=== PATIENT | female | born 1955 | race Caucasian/White ===

== ENCOUNTER 2021-02-01 14:00 | Inpatient (IN) | payer MEDICARE ==
[~2021-02-01] VITALS: Ht 167.6 cm; Wt 131.7 kg
[2021-02-01] MEDS ORDERED: LORazepam 2 MG/ML VIAL IV STA (14:22)
[2021-02-01 14:40] LABS: ABG BASE EXCESS -8.7 (-2.0-2.0); ABG HCO3 16.5 MEQ/L (22.0-26.0); ABG O2 SATURATION 97.4 % (95.0-99.0); ABG PARTIAL PRESSURE CO2 33.7 mmHg (35.0-45.0); ABG PARTIAL PRESSURE O2 105.2 mmHg (75.0-100.0); ABG STANDARD HCO3 17.6 MEQ/L (22.0-26.0); ABG TOTAL CO2 17.5 MEQ/L (23.0-31.0); ABG pH (ARTERIAL) 7.308 UNITS (7.350-7.450)
--- NOTE | 2021-02-01 14:55 | REP ---
INDICATION: SOB. COMPARISON: 01/10/2019 the latest prior a two view exam FINDINGS: The technique utilized in obtaining the radiograph has magnified the cardiac silhouette and accentuated the interstitial markings. The superior mediastinal structures are midline. The cardiac silhouette is unremarkable in size, shape, and position, however, mild cardiomegaly cannot be ruled out.. The diaphragmatic surfaces of the lungs are regular, and the costophrenic angles are clear. The pulmonary cox are clear. The imaged osseous structures are intact.. IMPRESSION: There is no acute cardiopulmonary disease. Mild cardiomegaly cannot be ruled out. <Electronically signed by Elijah Monsalve > 02/01/21 [id number]
[2021-02-01 15:06] LABS: BASO # 0.1 10^3/uL (0.0-0.2); BASO % 0.5 % (0.0-1.0); EOS # 0.2 10^3/uL (0.0-0.5); HEMATOCRIT 42.6 % (36.0-47.0); HEMOGLOBIN 14.2 g/dl (12.0-15.5); LYMPH # 3.1 10^3/uL (1.5-5.0); LYMPH % 18.6 % (24.0-44.0); MEAN CORPUSCULAR HEMOGLOBIN 28.8 pg (27.0-33.0); MEAN CORPUSCULAR HGB CONC 33.3 g/dl (32.0-36.5); MEAN CORPUSCULAR VOLUME 86.4 fl (80.0-96.0); MONO # 1.1 10^3/uL (0.0-0.8); MONO % 6.4 % (2.0-8.0); NEUTROPHILS # 12.4 10^3/uL (1.5-8.5); PLATELET COUNT, AUTOMATED 464 10^3/uL (150-450); RED BLOOD COUNT 4.93 10^6/uL (4.00-5.40); WHITE BLOOD COUNT 16.9 10^3/uL (4.0-10.0)
[2021-02-01 16:03] LABS: ETHYL ALCOHOL (ETHANOL) < 0.003 % (0.000-0.010); SALICYLATE LEVEL < 1.7 MG/DL (5.0-30.0)
[2021-02-01 16:04] LABS: ACETAMINOPHEN LEVEL < 2.0 UG/ML (10.0-30.0)
--- NOTE | 2021-02-01 16:27 | REP ---
INDICATION: AMS. COMPARISON: None. TECHNIQUE: Helical scanning is acquired. 5 mm axial images were reformatted. Coronal MPR images were generated. FINDINGS: Preliminary digital manager of school radiograph is unremarkable. The patient is edentulous. On bone window settings, the bony calvarium is intact. Visualized paranasal sinuses are clear. No intraorbital abnormality is seen. There is mild vascular calcification. Small vessel atherosclerotic changes are seen in the periventricular white matter of the frontal lobes. There is no evidence of intracranial hemorrhage or acute infarction. No mass, extra-axial fluid collection, or midline shift. IMPRESSION: Vascular calcification, mild small vessel changes. No acute intracranial abnormality. <Electronically signed by Seymour Keita > 02/01/21 [id number]
[2021-02-01 16:29] LABS: AMPHETAMINES LEVEL URINE NEGATIVE (NEGATIVE); BARBITURATES URINE NEGATIVE (NEGATIVE); BENZODIAZEPINES URINE POSITIVE (NEGATIVE); CANNABINOIDS URINE NEGATIVE (NEGATIVE); COCAINE METABOLITE URINE NEGATIVE (NEGATIVE); METHADONE URINE NEGATIVE (NEGATIVE); OPIATES URINE NEGATIVE (NEGATIVE); PHENCYCLIDINE URINE NEGATIVE (NEGATIVE)
[2021-02-01] MEDS ORDERED: INCR1INH INH (17:46)
[2021-02-01] MEDS ORDERED: BACL10TA2 PO (17:46)
[2021-02-01] MEDS ORDERED: ATOR40TA75 PO (17:46)
[2021-02-01] MEDS ORDERED: OXYC20TA40 PO (17:46)
[2021-02-01] MEDS ORDERED: IBUP80TA PO (17:46)
[2021-02-01] MEDS ORDERED: ADV500INH INH (17:46)
[2021-02-01] MEDS ORDERED: CARB20TAXR PO (17:46)
[2021-02-01] MEDS ORDERED: ROPI0.5T3 PO (17:46)
[2021-02-01] MEDS ORDERED: NYST1POW9 TOP (17:46)
[2021-02-01] MEDS ORDERED: NITR1CAP27 PO (17:46)
[2021-02-01] MEDS ORDERED: CARB200T98 PO (17:46)
[2021-02-01] MEDS ORDERED: CARI1TAB7 PO (17:46)
[2021-02-01] MEDS ORDERED: FLUTISP NARES (17:46)
[2021-02-01] MEDS ORDERED: ERGO500029 PO (17:46)
[2021-02-01] MEDS ORDERED: FURO40TA2 PO (17:46)
[2021-02-01] MEDS ORDERED: ALBU8.5H INH (17:46)
[2021-02-01] MEDS ORDERED: DIPH25TA4 PO (17:46)
[2021-02-01] MEDS ORDERED: AMIT50TA PO (17:46)
[2021-02-01] MEDS ORDERED: LEVE750T5 PO (17:46)
[2021-02-01] MEDS ORDERED: METH-1022 PO ×2 (17:46)
[2021-02-01] MEDS ORDERED: OXYC-517 PO (17:46)
[2021-02-01] MEDS ORDERED: ALPR0.25 PO (17:46)
[2021-02-01] MEDS ORDERED: DOCU100C16 PO (17:46)
[2021-02-01] MEDS ORDERED: MED REC COMMENT (17:47)
[2021-02-01] MEDS ORDERED: SODIUM CHLORIDE 0.9% 1000ML IV STA (18:18)
[2021-02-01] MEDS ORDERED: LORazepam 2 MG/ML VIAL IV PRN (18:20)
[2021-02-01] MEDS ORDERED: VANCOMYCIN HCL 0 MG in IV FLUID PLACE HOLDER 1 EA IV SCH (18:30)
[2021-02-01] MEDS ORDERED: HOME MED LIST COMPLETE! XX SCH (18:45)
--- NOTE | 2021-02-01 18:50 | HPEPDOC ---
[facility] Medical History & Physical Date of Admission Feb 01, 2021 Date of Service: Feb 01, 2021 History and Physical CHIEF COMPLAINT: Unable to provide due to her mental status HISTORY OF PRESENT ILLNESS: 65-year-old female with a past medical history of COPD, bronchiectasis, seizure disorder, narcolepsy, common variable immunodeficiency, chronic pain syndrome, diabetes mellitus, TIA, sleep apnea, degenerative disc disease, and psoairsis was brought to the emergency room department by EMS. Unfortunately, due to the patient's mental status she is unable to contribute to HPI. As per ED signout, patient was dropped off without much information given. Initially she was swinging in bed and subsequently her mental status changed to staring into space but when her name was called she would track and respond with one-word. Otherwise, she reportedly would not engage in conversation. When she was seen in the emergency room department she was staring into space and her extremities were rolling. When her name was called these movements were to stop and she will track this provider in the room but would not engage in any conversation. She did not follow any commands. In the emergency room department she had a fever of 100.5, leukocytosis, and lactic acid of 2.24. She got a CT scan of the brain that showed no acute intracranial abnormalities. She did receive 0.5 mg of Ativan due to her initial agitation. PAST MEDICAL HISTORY: Past medical history was obtained from the chart, as mentioned above. PAST SURGICAL HISTORY: Obtained from the chart 1. Cholecystectomy. 2. Multiple orthopedic surgeries. SOCIAL HISTORY: Limited due to the patient's mental status. Attempt to call next of kin listed on file but there was no answer. According to previous records she does not smoke, and denied alcohol and recreational drug use. FAMILY HISTORY: According to previous records it was positive for malignancy. ALLERGIES: Please see below. REVIEW OF SYSTEMS: Unable to obtain due to mental status HOME MEDICATIONS: Please see below. PHYSICAL EXAMINATION: VITAL SIGNS: Please see below General: Lying in bed, no acute distress Head/Neck/Throat: Trachea midline, mucous membranes moist Eyes: Sclera anicteric, no erythema or discharge appreciated bilaterally Thorax: Normal respiratory effort on room air, lungs clear to auscultation bilaterally. Cardiovascular: Normal rate, regular rhythm, normal S1, S2; Abdomen: Bowel sounds present, soft/nontender/nondistended Genitourinary: No CVA tenderness, no Elizondo in place Musculoskeletal: Moving all extremities, no edema Skin: Warm, dry Neurologic: Awake, only tracks in the room once her name is called. She has rolling tremors that resolved when her name is called. LABORATORY DATA: See below. IMAGING: CT Head without contrast FINDINGS: Preliminary digital press feeder broomcorn radiograph is unremarkable. The patient is edentulous. On bone window settings, the bony calvarium is intact. Visualized paranasal sinuses are clear. No intraorbital abnormality is seen. There is mild vascular calcification. Small vessel atherosclerotic changes are seen in the periventricular white matter of the frontal lobes. There is no evidence of intracranial hemorrhage or acute infarction. No mass, extra-axial fluid collection, or midline shift. IMPRESSION: Vascular calcification, mild small vessel changes. No acute intracranial abnormality. Chest, 1 view FINDINGS: The technique utilized in obtaining the radiograph has magnified the cardiac silhouette and accentuated the interstitial markings. The superior mediastinal structures are midline. The cardiac silhouette is unremarkable in size, shape, and position, however, mild cardiomegaly cannot be ruled out.. The diaphragmatic surfaces of the lungs are regular, and the costophrenic angles are clear. The pulmonary cox are clear. The imaged osseous structures are intact.. IMPRESSION: There is no acute cardiopulmonary disease. Mild cardiomegaly cannot be ruled out. MICROBIOLOGY: Please see below. ASSESSMENT/PLAN: #Encephalopathy - toxic and metabolic -Etiology of her change in mental status is unclear. Unable to get in touch with family members to obtain baseline mental status and exact course of events. -This may be due to polypharmacy, she is on several medications that would alter mentation including alprazolam, amitriptyline, carisoprodol, diphenhydramine, methylphenidate, oxycodone, and OxyContin. If she does begin to show signs of withdrawal we will manage symptomatically with Ativan as needed. vs -Infectious etiology. She was noted to be febrile, had leukocytosis, and elevated lactic acid. Blood cultures, and urine cultures were obtained. 30 cc/kg fluid resuscitation will be given. Start with broad-spectrum antibiotics and narrow based on cultures. vs -Postictal encephalopathy, will check Keppra and carbamazepine levels. Spoke to nephrology who recommended to start her on IV Keppra equivalent dose of her ambulatory setting, as well as Dilantin 200 mg twice daily IV. vs -CVA, a stat MRI has been ordered as per nephrology recommendations. #Sepsis -She meets SIRS criteria but source is unknown. Her UA and chest x-ray were unremarkable. We will check blood cultures. Begin broad-spectrum antibiotics. -Follow-up lactic acid in 4 hours #COPD/bronchiectasis -Blood gas is mixed - primary acidosis with possibly secondary respiratory acidosis and additional metabolic alkalosis. -Patient not to be a acute exacerbation. Reviewing previous records she was on 3 L home O2; DuoNebs for now. #Common variable immunodeficiency -In 11/2019 she was receiving medical therapy as outpatient every . Unclear whether or not this has been continued. #Chronic pain syndrome -Back pain, neck pain, cervical disectomy, lumbosacral spondylosis, post laminectomy syndrome -We will hold narcotics due to mental status #Hyperlipidemia -Continue statin therapy once mental status improves. #Seizures -Continue equivalent IV dose of Keppra and will start Dilantin b/c carbamazepine is not offered IV. #Anxiety -Holding alprazolam due to mental status. #RLS -Holding ropinirole due to mental status. #DVT ppx -heparin subq. Critical care time spent 75 minutes. Vital Signs Vital Signs Date Time Temp Pulse Resp B/P (MAP) Pulse Ox O2 Delivery O2 Flow Rate FiO2 02/01/21 16:15 99.1 91 24 148/90 (109) 99 Nasal Cannula 2.0 Laboratory Data Labs 24H Laboratory Tests 2 02/01/21 14:19: POC Glucose (Misc Panel) 101, POC Sodium (Misc Panel) 133L, POC Potassium (Misc Panel) 4.9, POC Chloride (Misc Panel) 97L, POC Total CO2 (Misc Panel) 24.0, POC Blood Urea Nitrogen (Misc Panel 6L, POC Ionized Calcium (Misc Panel) 4.7, POC Creatinine (Misc Panel) 0.6, POC Hematocrit (Misc Panel) 44.0 02/01/21 14:21: Immature Granulocyte % (Auto) 0.5, Neutrophils (%) (Auto) 73.0H, Lymphocytes (%) (Auto) 18.6L, Monocytes (%) (Auto) 6.4, Eosinophils (%) (Auto) 1.0, Basophils (%) (Auto) 0.5, Neutrophils # (Auto) 12.4H, Lymphocytes # (Auto) 3.1, Monocytes # (Auto) 1.1H, Eosinophils # (Auto) 0.2, Basophils # (Auto) 0.1, Nucleated Red Blood Cells % (auto) 0.0, Salicylates Level < 1.7L, Acetaminophen Level < 2.0L, Ethyl Alcohol Level < 0.003 02/01/21 14:22: Blood Gas Bicarbonate Standard 17.6L, Arterial Blood pH 7.308L, Arterial Blood Partial Pressure CO2 33.7L, Arterial Blood Partial Pressure O2 105.2H, Arterial Blood Total CO2 17.5L, Arterial Blood HCO3 16.5L, Arterial Blood Base Excess - 8.7L, Arterial Blood Oxygen Saturation 97.4 02/01/21 14:25: Bedside Glucose (Misc Panel) 150H 02/01/21 14:31: POC Troponin I (Misc) 0.00 02/01/21 15:33: Urine Color YELLOW, Urine Appearance CLEAR, Urine pH 6.0, Urine Specific [place] 1.013, Urine Protein 2+H, Urine Glucose (UA) NEGATIVE, Urine Ketones NEGATIVE, Urine Blood 2+H, Urine Nitrite NEGATIVE, Urine Bilirubin NEGATIVE, Urine Urobilinogen 0.2, Urine Leukocyte Esterase NEGATIVE, Urine WBC (Auto) 0, Urine RBC (Auto) 2, Urine Hyaline Casts (Auto) 0, Urine Bacteria (Auto) NEGATIVE, Urine Squamous Epithelial Cells 2, Urine Mucus (Auto) SMALL, Urine Sperm (Auto) , Urine Opiates Screen NEGATIVE, Urine Methadone Screen NEGATIVE, Urine Barbiturates Screen NEGATIVE, Urine Phencyclidine Screen NEGATIVE, Urine Amphetamines Screen NEGATIVE, Urine Benzodiazepines Screen POSITIVEH, Urine Cocaine Metabolite Screen NEGATIVE, Urine Cannabinoids Screen NEGATIVE 02/01/21 15:57: POC Lactate (Misc Panel) 2.24*H CBC/BMP Laboratory Tests 02/01/21 14:21 Microbiology Microbiology 02/01/21 Blood Culture, Received Pending 02/01/21 Respiratory Virus Panel (PCR) (GAYLE) - Final, Complete 02/01/21 Blood Culture, Received Pending Home Medications Scheduled Alprazolam (Alprazolam) 0.25 Mg Tablet, 0.25 MG PO TID Amitriptyline HCl (Amitriptyline HCl) 50 Mg Tablet, 50 MG PO DAILY Atorvastatin Calcium (Atorvastatin Calcium) 40 Mg Tablet, 40 MG PO DAILY Baclofen (Baclofen) 10 Mg Tablet, 10 MG PO QHS Carbamazepine (Carbamazepine ER) 200 Mg Tab.er.12h, 200 MG PO DAILY Carbamazepine (Carbamazepine ER) 200 Mg Tab.er.12h, 400 MG PO QHS Docusate Sodium (Docusate Sodium) 100 Mg Capsule, 200 MG PO DAILY Ergocalciferol (Vitamin D2) (Vitamin D2) 50,000 Units Cap, 50,000 UNITS PO ASDIRECTED EVERY 10 DAYS Fluticasone Propionate (Fluticasone Propionate) 16 Gm [place].susp, 2 SPRAYS NARES QHS Furosemide (Furosemide) 40 Mg Tablet, 40 MG PO DAILY Levetiracetam (Levetiracetam) 750 Mg Tablet, 750 MG PO BID Methylphenidate HCl (Methylphenidate HCl) 10 Mg Tablet, 10 MG PO QAM Methylphenidate HCl (Methylphenidate HCl) 10 Mg Tablet, 20 MG PO DAILY TAKES AT NOON Nitrofurantoin Macrocrystal (Nitrofurantoin) 50 Mg Capsule, 50 MG PO DAILY Oxycodone HCl (Oxycontin) 20 Mg Tab.er.12h, 20 MG PO Q12H Ropinirole HCl (Ropinirole HCl) 0.5 Mg Tablet, 0.5 MG PO BID Salmeterol/Fluticasone (Advair 500-50 Diskus) 1 Each Blst.w.dev, 1 PUFF INH Q12H Umeclidinium [place] (Incruse Ellipta) 62.5 Mcg Blst.w.dev, 1 PUFF INH DAILY Scheduled PRN Albuterol Sulfate (Albuterol Sulfate Hfa) 8.5 Gm Hfa.aer.ad, 2 PUFFS INH Q4H PRN for SHORTNESS OF BREATH Carisoprodol (Carisoprodol) 350 Mg Tablet, 350 MG PO TID PRN for PAIN LEVEL 1-4 Ibuprofen (Ibuprofen) 800 Mg Tablet, 800 MG PO Q8H PRN for PAIN LEVEL 1-4 Nystatin (Nystatin Powder) 15 Gm Powder, 1 APPLIC TOP BID PRN for RASH APPLIES TO GROIN, UNDER BREASTS Oxycodone HCl (Oxycodone HCl) 5 Mg Tablet, 5 MG PO Q8H PRN for PAIN LEVEL 8-10 diphenhydrAMINE HCl (diphenhydrAMINE HCl) 25 Mg Tablet, 25 MG PO Q4H PRN for ITCHING Miscellaneous Medications [Med Rec Comment] [facility] REC OBTAINED VIA EXTERNAL Allergies Coded Allergies: No Known Allergies (Unverified , 02/01/21) A-FIB/CHADSVASC A-FIB History Current/History of A-Fib/PAF?: No MILAGRO HOOKER M.D. Feb 01, 2021 18:30
[2021-02-01] MEDS ORDERED: DEXTROSE 50% 50 ML SYRINGE IV PRN (19:00)
[2021-02-01] MEDS ORDERED: GLUCAGON INJ 1MG VIAL SC PRN (19:00)
[2021-02-01] MEDS ORDERED: GLUCOSE 4GM CHEW TABLET PO PRN (19:00)
[2021-02-01] MEDS ORDERED: ISOVUE-370 76% 100ML VIAL As Ordered ONE (19:14)
[2021-02-01] MEDS: PIPERACILLIN/TAZOBACTAM SOD 3.375 GM in D5W MINI-BAG PLUS 50 ML IV SCH (20:00)
[2021-02-01 20:30] LABS: ALBUMIN 3.5 GM/DL (3.2-5.2); ALT/SGPT 27 U/L (12-78); BILIRUBIN,TOTAL 0.2 MG/DL (0.2-1.0); BLOOD UREA NITROGEN 7 MG/DL (7-18); CALCIUM LEVEL 9.3 MG/DL (8.8-10.2); CARBAMAZEPINE (TEGRETOL) LEVEL 7.9 UG/ML (4.0-10.0); CARBON DIOXIDE LEVEL 29 MEQ/L (21-32); CHLORIDE LEVEL 97 MEQ/L (98-107); CREATININE FOR GFR 0.68 MG/DL (0.55-1.30); GLOMERULAR FILTRATION RATE > 60.0 (>45); GLUCOSE, FASTING 115 MG/DL (70-100); MAGNESIUM LEVEL 2.1 MG/DL (1.8-2.4); PHOSPHORUS LEVEL 4.2 MG/DL (2.5-4.9); POTASSIUM SERUM 4.7 MEQ/L (3.5-5.1); SODIUM LEVEL 132 MEQ/L (136-145); TOTAL PROTEIN 7.6 GM/DL (6.4-8.2)
[2021-02-01 20:40] LABS: FREE T4 0.76 NG/DL (0.76-1.46); THYROID STIMULATING HORMONE 2.38 uIU/ML (0.358-3.740)
[2021-02-01 20:41] LABS: FOLATE 7.5 NG/ML (>5.4)
[2021-02-01 20:42] LABS: TROPONIN I < 0.02 NG/ML (< 0.10)
[2021-02-01] MEDS ORDERED: levETIRAcetam INJection 750 MG in D5W 100 ML IV SCH (21:00)
--- NOTE | 2021-02-01 21:03 | REPVR ---
PROCEDURE INFORMATION: Exam: CT Chest Without and With Contrast; Diagnostic Exam date and time: 02/01/2021 8:22 PM Age: 65 years old Clinical indication: Shortness of breath; Additional info: CT chest with and without TECHNIQUE: Imaging protocol: Diagnostic computed tomography of the chest without and with contrast. 3D rendering (Not supervised by radiologist): MIP and/or 3D reconstructed images were created by the technologist. Radiation optimization: All CT scans at this facility use at least one of these dose optimization techniques: automated exposure control; mA and/or kV adjustment per patient size (includes targeted exams where dose is matched to clinical indication); or iterative reconstruction. Contrast material: ISOVUE 370; Contrast volume: 100 ml; Contrast route: INTRAVENOUS (IV); COMPARISON: CR Chest, 1 view 02/01/2021 2:41 PM FINDINGS: Lungs: Slight interstitial coarsening with minimal scattered fibro-atelectatic change. Pleural spaces: Unremarkable. No pneumothorax. No pleural effusion. Heart: Unremarkable. No cardiomegaly. No pericardial effusion. Pulmonary arteries: The main pulmonary artery measures 23 mm. Aorta: The ascending thoracic aorta measures 30 mm. Lymph nodes: Unremarkable. No enlarged lymph nodes. Gallbladder and bile ducts: Status post cholecystectomy. Bones/joints: Degenerative changes of the shoulders with question of loose bodies or calcific densities along the biceps tendon on the right. Soft tissues: Unremarkable. Other findings: Motion artifact with image degradation. IMPRESSION: 1. Motion artifact with image degradation. 2. Slight interstitial coarsening with minimal scattered fibro-atelectatic change. 3. Degenerative changes of the shoulders with loose bodies along the biceps tendon sheath. 4. Otherwise negative CT chest. No focal infiltrates. Electronically signed by: Chris Cleaning On 02/01/2021 21:02:23 PM
[2021-02-01] MEDS: PHENYTOIN INJ 250 MG/5 ML VIAL (J1165) IV SCH (21:48)
[2021-02-01] MEDS ORDERED: VANCOMYCIN HCL 1,000 MG, VIAL MATE ADAPTER 1 EACH in NS 250 ML IV ONE ×2 (22:00→23:00)
[2021-02-01 22:17] VITALS: BP 139/101
[2021-02-01 22:19] VITALS: BP 156/103
--- NOTE | 2021-02-01 22:36 | REPVR ---
PROCEDURE INFORMATION: Exam: CT Abdomen With Contrast Exam date and time: 02/01/2021 8:22 PM Age: 65 years old Clinical indication: Condition or disease; Other: Sepsis unclear source TECHNIQUE: Imaging protocol: Computed tomography images of the abdomen with intravenous contrast. Radiation optimization: All CT scans at this facility use at least one of these dose optimization techniques: automated exposure control; mA and/or kV adjustment per patient size (includes targeted exams where dose is matched to clinical indication); or iterative reconstruction. Contrast material: ISOVUE 370; Contrast volume: 100 ml; Contrast route: INTRAVENOUS (IV); COMPARISON: CR Chest, 1 view 02/01/2021 2:41 PM FINDINGS: Lungs: Bibasilar interstitial coarsening with minimal fibro-atelectatic change. Liver: Normal. No mass. Gallbladder and bile ducts: Status post cholecystectomy. Pancreas: Pancreatic atrophy for age. Spleen: Normal. No splenomegaly. Adrenals: Normal. No mass. Kidneys and ureters: Lobular kidneys bilaterally. Stomach and bowel: Visualized stomach and bowel are unremarkable. No obstruction. No mucosal thickening. Intraperitoneal space: Unremarkable. No free air. No significant fluid collection. Lymph nodes: Unremarkable. No enlarged lymph nodes. Vasculature: Mild atherosclerotic calcification of the aorta. Bones/joints: Anterior wedge configuration of T8-T9 and T11 with decreased height of T10 which appear to be chronic Soft tissues: Unremarkable. IMPRESSION: 1. Status post cholecystectomy. 2. Pancreatic atrophy for age. 3. Otherwise negative CT abdomen. Electronically signed by: Chris Cleaning On 02/01/2021 22:36:28 PM
[2021-02-01] MEDS: NS 1,000 ML IV SCH ×2 (22:42→23:54)
[2021-02-01 23:01] VITALS: BP 144/85
[2021-02-02] VITALS (13 sets, daily range): BP systolic 132–186; BP diastolic 67–92
[2021-02-02] MEDS: HumaLOG INSULIN (NovoLOG) PER UNIT SC SCH ×5 (00:11→23:25)
[2021-02-02] MEDS: NS 1,000 ML IV SCH ×2 (01:11→02:20)
[2021-02-02] MEDS: PIPERACILLIN/TAZOBACTAM SOD 3.375 GM in D5W MINI-BAG PLUS 50 ML IV SCH ×4 (01:11→20:12)
[2021-02-02 05:15] LABS: HEMATOCRIT 35.7 % (36.0-47.0); MEAN CORPUSCULAR HGB CONC 33.3 g/dl (32.0-36.5); MEAN CORPUSCULAR VOLUME 86.9 fl (80.0-96.0); PLATELET COUNT, AUTOMATED 367 10^3/uL (150-450); RED BLOOD COUNT 4.11 10^6/uL (4.00-5.40); WHITE BLOOD COUNT 11.5 10^3/uL (4.0-10.0)
[2021-02-02 05:23] LABS: HEMOGLOBIN 11.9 g/dl (12.0-15.5)
[2021-02-02 05:39] LABS: BLOOD UREA NITROGEN 6 MG/DL (7-18); CARBON DIOXIDE LEVEL 25 MEQ/L (21-32); CHLORIDE LEVEL 108 MEQ/L (98-107); CREATININE FOR GFR 0.62 MG/DL (0.55-1.30); GLOMERULAR FILTRATION RATE > 60.0 (>45); GLUCOSE, FASTING 109 MG/DL (70-100); MAGNESIUM LEVEL 1.8 MG/DL (1.8-2.4); POTASSIUM SERUM 4.7 MEQ/L (3.5-5.1); SODIUM LEVEL 140 MEQ/L (136-145)
[2021-02-02] MEDS: VANCOMYCIN HCL 1,000 MG, VIAL MATE ADAPTER 1 EACH in NS 250 ML IV SCH ×3 (06:08→22:14)
[2021-02-02] MEDS: HEPARIN SOD (PORCINE) 5000UNITS/ML 1ML VIAL/SYRINGE SC SCH ×3 (06:09→21:47)
[2021-02-02] MEDS: PHENYTOIN INJ 250 MG/5 ML VIAL (J1165) IV SCH ×2 (08:48→20:25)
[2021-02-02] MEDS ORDERED: LORazepam 2 MG/ML VIAL IV ONE ×2 (10:00→10:45)
[2021-02-02] MEDS ORDERED: levETIRAcetam INJection 750 MG in D5W 100 ML IV SCH (10:00)
--- NOTE | 2021-02-02 11:11 | ECGEPIP ---
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
[2021-02-02] MEDS ORDERED: hydrALAZINE 20MG/ML 1ML VIAL (J0360 PER 20MG) IV PRN (11:20)
--- NOTE | 2021-02-02 11:20 | IPNPDOC ---
Subjective Date Seen The patient was seen on 02/02/21. Subjective Chief Complaint/HPI Patient was seen and examined at bedside this morning. She is more awake and alert than she was on the day of admission. She only answers questions in one- word, and these words include " yes", " no", " all right", and " me". She is unable to elaborate on her answers. She does follow commands now but if asked repeatedly. Unfortunately, the MRI was not completed last night despite it being ordered stat. She will be going down to day for it. Objective Physical Examination Other physical findings General: Lying in bed, no acute distress Head/Neck/Throat: Trachea midline, mucous membranes moist Eyes: Sclera anicteric, no erythema or discharge appreciated bilaterally Thorax: Normal respiratory effort on room air, lungs clear to auscultation bilaterally. Cardiovascular: Normal rate, regular rhythm, normal S1, S2; Abdomen: Bowel sounds present, soft/nontender/nondistended Genitourinary: Elizondo draining yellow urine Musculoskeletal: Moving all extremities, no edema Skin: Warm, dry Neurologic: Awake, alert, only answers questions in simple one-word answers. She follows commands of asked repeatedly to do something but minimally. Assessment /Plan Assessment #Encephalopathy - toxic and metabolic -Her mentation is improving. Etiology of her change in mental status is unclear. We will try to get in touch with her brother today again to obtain mo re history of exactly what happened. -This may be due to polypharmacy, she is on several medications that would alter mentation including alprazolam, amitriptyline, carisoprodol, diphenhydramine, m ethylphenidate, oxycodone, and OxyContin. If she does begin to show signs of withdrawal we will manage symptomatically with Ativan as needed. vs -Infectious etiology. She was noted to be febrile, had leukocytosis, and elevated lactic acid. Blood cultures, and urine cultures were obtained. 30 cc/ kg fluid resuscitation will be given. Start with broad-spectrum antibiotics and narrow based on cultures. vs -Postictal encephalopathy, will check Keppra and carbamazepine levels. Spoke to nephrology who recommended to start her on IV Keppra equivalent dose of her ambulatory setting, as well as Dilantin 200 mg twice daily IV. vs -CVA, a stat MRI has been ordered as per neurology recommendations #Sepsis -She meet SIRS criteria but source is unknown. Her UA and chest x-ray were unremarkable. We will check blood cultures. Continue with broad-spectrum antibiotics until cultures have resulted. Lactic acid has resolved. #COPD/bronchiectasis -Blood gas was mixed on admission- primary acidosis with possibly secondary respiratory acidosis and additional metabolic alkalosis. -Patient not in acute exacerbation. Reviewing previous records she was on 3 L home O2; DuoNebs for now. #Common variable immunodeficiency -In 11/2019 she was receiving medical therapy as outpatient every . Unclear whether or not this has been continued. #Chronic pain syndrome -Back pain, neck pain, cervical disectomy, lumbosacral spondylosis, post laminectomy syndrome -We will hold narcotics due to mental status #Hyperlipidemia -Continue statin therapy once mental status improves. #Seizures -Continue equivalent IV dose of Keppra and will start Dilantin b/c carbamazepine is not offered IV. #Anxiety -Holding alprazolam due to mental status. #RLS -Holding ropinirole due to mental status. #DVT ppx -heparin subq. Critical care time spent 45 minutes. Another attempt to call brother, who reportedly called the icu, but there was no answer. Plan/VTE VTE Prophylaxis Ordered?: Yes VS, I&O, 24H, Fishbone Vital Signs/I&O Vital Signs Date Time Temp Pulse Resp B/P (MAP) Pulse Ox O2 Delivery O2 Flow Rate FiO2 02/02/21 10:01 68 19 186/81 (116) 96 Room Air 02/02/21 08:07 99.3 02/01/21 22:19 3.0 I&O- Last 24 Hours up to 6 AM 02/02/21 06:00 Intake Total 4147.5 ml Output Total 1975 ml Balance 2172.5 ml Laboratory Data 24H LABS Laboratory Tests 2 02/01/21 14:19: POC Glucose (Misc Panel) 101, POC Sodium (Misc Panel) 133L, POC Potassium (Misc Panel) 4.9, POC Chloride (Misc Panel) 97L, POC Total CO2 (Misc Panel) 24.0, POC Blood Urea Nitrogen (Misc Panel 6L, POC Ionized Calcium (Misc Panel) 4.7, POC Creatinine (Misc Panel) 0.6, POC Hematocrit (Misc Panel) 44.0 02/01/21 14:21: Immature Granulocyte % (Auto) 0.5, Neutrophils (%) (Auto) 73.0H, Lymphocytes (%) (Auto) 18.6L, Monocytes (%) (Auto) 6.4, Eosinophils (%) (Auto) 1.0, Basophils (%) (Auto) 0.5, Neutrophils # (Auto) 12.4H, Lymphocytes # (Auto) 3.1, Monocytes # (Auto) 1.1H, Eosinophils # (Auto) 0.2, Basophils # (Auto) 0.1, Nucleated Red Blood Cells % (auto) 0.0, Salicylates Level < 1.7L, Acetaminophen Level < 2.0L, Ethyl Alcohol Level < 0.003 02/01/21 14:22: Blood Gas Bicarbonate Standard 17.6L, Arterial Blood pH 7.308L, Arterial Blood Partial Pressure CO2 33.7L, Arterial Blood Partial Pressure O2 105.2H, Arterial Blood Total CO2 17.5L, Arterial Blood HCO3 16.5L, Arterial Blood Base Excess - 8.7L, Arterial Blood Oxygen Saturation 97.4 02/01/21 14:25: Bedside Glucose (Misc Panel) 150H 02/01/21 14:31: POC Troponin I (Misc) 0.00 02/01/21 15:33: Urine Color YELLOW, Urine Appearance CLEAR, Urine pH 6.0, Urine Specific [place] 1.013, Urine Protein 2+H, Urine Glucose (UA) NEGATIVE, Urine Ketones NEGATIVE, Urine Blood 2+H, Urine Nitrite NEGATIVE, Urine Bilirubin NEGATIVE, Urine Urobilinogen 0.2, Urine Leukocyte Esterase NEGATIVE, Urine WBC (Auto) 0, Urine RBC (Auto) 2, Urine Hyaline Casts (Auto) 0, Urine Bacteria (Auto) NEGATIVE, Urine Squamous Epithelial Cells 2, Urine Mucus (Auto) SMALL, Urine Sperm (Auto) , Urine Opiates Screen NEGATIVE, Urine Methadone Screen NEGATIVE, Urine Barbiturates Screen NEGATIVE, Urine Phencyclidine Screen NEGATIVE, Urine Amphetamines Screen NEGATIVE, Urine Benzodiazepines Screen POSITIVEH, Urine Cocaine Metabolite Screen NEGATIVE, Urine Cannabinoids Screen NEGATIVE 02/01/21 15:57: POC Lactate (Misc Panel) 2.24*H 02/01/21 18:55: Anion Gap 6L, Glomerular Filtration Rate > 60.0, Calcium Level 9.3, Phosphorus Level 4.2, Magnesium Level 2.1, Total Bilirubin 0.2, Aspartate Amino Transf (AST/SGOT) 21, Alanine Aminotransferase (ALT/SGPT) 27, Alkaline Phosphatase 274H, Troponin I < 0.02, Total Protein 7.6, Albumin 3.5, Albumin/Globulin Ratio 0.9L, Carbamazepine (Tegretol) Level 7.9 02/01/21 19:41: Ammonia 29, Vitamin B12 Level 448, Folate 7.5, Thyroid Stimulating Hormone (TSH) 2.380, Free Thyroxine 0.76 02/01/21 21:02: Lactic Acid Followup at 4 Hours 1.6 02/02/21 00:02: Bedside Glucose (Misc Panel) 123H 02/02/21 00:53: Methicillin-Resist S.aureus DNA PCR DETECTEDA 02/02/21 04:42: Nucleated Red Blood Cells % (auto) 0.0, Anion Gap 7L, Glomerular Filtration Rate > 60.0, Calcium Level 8.0L, Phosphorus Level 3.0#, Magnesium Level 1.8 02/02/21 05:42: Bedside Glucose (Misc Panel) 122H CBC/BMP Laboratory Tests 02/01/21 14:21 02/01/21 18:55 02/02/21 04:42 Microbiology Microbiology 02/01/21 Blood Culture, Received Pending 02/01/21 Respiratory Virus Panel (PCR) (GAYLE) - Final, Complete 02/01/21 Blood Culture, Received Pending MILAGRO HOOKER M.D. Feb 02, 2021 11:20
[2021-02-02 11:46] LABS: TROPONIN I < 0.02 NG/ML (< 0.10)
--- NOTE | 2021-02-02 12:30 | REPVR ---
PROCEDURE INFORMATION: Exam: MR Head Without Contrast Exam date and time: 02/02/2021 11:54 AM Age: 65 years old Clinical indication: Altered mental status/memory loss; Confusion or disorientation; Additional info: Encephalopathy TECHNIQUE: Imaging protocol: MR of the head without contrast. COMPARISON: CT Head without contrast 02/01/2021 3:52 PM FINDINGS: Limitations: The study is limited due to motion artifact. Brain: There is mild patchy increased T2 signal intensity within the bilateral cerebral periventricular white matter, consistent with chronic microvascular ischemic changes. There are multiple small focal areas of chronic ischemia in bilateral frontal, parietal and periatrial white matter. There is no abnormal diffusion weighted signal intensity to suggest an acute ischemic event. There is mild diffuse cerebral atrophy present, consistent with this patient's age. Cerebral ventricles: The ventricular system demonstrates mild diffuse compensatory enlargement. Bones/joints: Unremarkable. Paranasal sinuses: Normal as visualized. No acute sinusitis. Mastoid air cells: Normal as visualized. No mastoid effusion. Orbital cavity: Unremarkable. Soft tissues: Unremarkable. IMPRESSION: 1. No acute infarction, masses or hemorrhage is seen. No acute intracranial abnormality is identified. 2. Diffuse age-related cerebral atrophy and mild chronic microvascular white matter ischemic changes, without evidence of an acute intracranial abnormality. 3. There has been no adverse interval change since the previous study. Electronically signed by: Radames Johnson On 02/02/2021 12:29:56 PM
--- NOTE | 2021-02-02 13:01 | REPVR ---
PROCEDURE INFORMATION: Exam: MRA Head Without Contrast; Arteriography Exam date and time: 02/02/2021 11:54 AM Age: 65 years old Clinical indication: Other: AMS; Additional info: [place]ibel CVA TECHNIQUE: Imaging protocol: Magnetic resonance angiography head without contrast. Exam focused on the arteries. 3D rendering (Not supervised by radiologist): MIP and/or 3D reconstructed images were created by the technologist. COMPARISON: CT Head without contrast 02/01/2021 3:52 PM FINDINGS: ANTERIOR CIRCULATION: Right internal carotid artery: Intracranial segment is patent with no significant stenosis. No aneurysm. Right middle cerebral artery: No occlusion or significant stenosis. No aneurysm. Right anterior cerebral artery: No occlusion or significant stenosis. No aneurysm. Left internal carotid artery: Intracranial segment is patent with no significant stenosis. No aneurysm. Left middle cerebral artery: No occlusion or significant stenosis. No aneurysm. Left anterior cerebral artery: No occlusion or significant stenosis. No aneurysm. POSTERIOR CIRCULATION: Right vertebral artery: No occlusion or significant stenosis. No aneurysm. Left vertebral artery: No occlusion or significant stenosis. No aneurysm. Basilar artery: No occlusion or significant stenosis. No aneurysm. Right posterior cerebral artery: No occlusion or significant stenosis. No aneurysm. Left posterior cerebral artery: No occlusion or significant stenosis. No aneurysm. IMPRESSION: No stenosis.No occlusion. No aneurysm. Electronically signed by: Radames Johnson On 02/02/2021 13:00:36 PM
[2021-02-02] MEDS: LIDOCAINE 5% (LIDODERM) PATCH TD SCH (21:00)
[2021-02-02] MEDS: levETIRAcetam INJection 1,000 MG in D5W 100 ML IV SCH (21:47)
[2021-02-02] MEDS ORDERED: KETOROLAC 30 MG/ML 1ML VIAL IV ONE (21:50)
[2021-02-03] VITALS (12 sets, daily range): BP systolic 95–180; BP diastolic 58–119
[2021-02-03] MEDS: PIPERACILLIN/TAZOBACTAM SOD 3.375 GM in D5W MINI-BAG PLUS 50 ML IV SCH ×4 (01:48→19:31)
--- NOTE | 2021-02-03 05:30 | ECGEPIP ---
[facility] - ED Test Date: 2021-02-01 Pat Name: JORDY COLLINS Department: Room: [place] [address] Gender: Female Timing Inspector: DANYELLE : 1955 Requested By: Braxton Redd Order Number: [id number] Reading MD: Braxton Muniz Measurements Intervals Ericson Rate: 105 P: 44 MS: 214 QRS: 86 QRSD: 74 T: 10 QT: 328 QTc: 433 Interpretive Statements Sinus tachycardia with 1st degree AV block Low voltage QRS POOR R WAVE PROGRESSION NO PRIORS FOR COMPARISON Electronically Signed on 02-03-2021 5:29:44 EDT by Braxton Muniz
[2021-02-03] MEDS: HumaLOG INSULIN (NovoLOG) PER UNIT SC SCH ×3 (05:48→17:23)
[2021-02-03] MEDS: levETIRAcetam INJection 1,000 MG in D5W 100 ML IV SCH (06:02)
[2021-02-03] MEDS: HEPARIN SOD (PORCINE) 5000UNITS/ML 1ML VIAL/SYRINGE SC SCH ×2 (06:02→14:12)
[2021-02-03] MEDS: VANCOMYCIN HCL 1,000 MG, VIAL MATE ADAPTER 1 EACH in NS 250 ML IV SCH ×2 (06:29→15:23)
[2021-02-03 08:14] LABS: ABG BASE EXCESS 0.5 (-2.0-2.0); ABG HCO3 24.1 MEQ/L (22.0-26.0); ABG O2 SATURATION 94.4 % (95.0-99.0); ABG PARTIAL PRESSURE CO2 35.1 mmHg (35.0-45.0); ABG PARTIAL PRESSURE O2 73.3 mmHg (75.0-100.0); ABG STANDARD HCO3 24.9 MEQ/L (22.0-26.0); ABG TOTAL CO2 25.1 MEQ/L (23.0-31.0); ABG pH (ARTERIAL) 7.454 UNITS (7.350-7.450)
[2021-02-03] MEDS ORDERED: IPRATROPIUM 0.5MG/ALBUTEROL 2.5MG INH SOL UD 3ML (DUONEB) NEB ONE (08:15)
[2021-02-03] MEDS ORDERED: methylPREDNISolone 125MG 2ML VIAL IV ONE (08:15)
--- NOTE | 2021-02-03 08:46 | REP ---
INDICATION: sob. COMPARISON: Comparison portable chest x-ray 01 February 2021. TECHNIQUE: Semi-erect AP portable exam. Single-view. FINDINGS: Ventral discectomy and fusion plating again noted in the cervical spine. EKG electrodes are seen. There is minimal pleuroparenchymal density in the left base which appears to be chronic. No new infiltrate is seen. The pleural angles are sharp. Cardiomediastinal silhouette is unremarkable. IMPRESSION: No acute disease. <Electronically signed by Seymour Keita > 02/03/21 [id number]
[2021-02-03] MEDS ORDERED: **NOTE PATIENT COMMENT** MISC XX SCH (09:00)
[2021-02-03] MEDS ORDERED: clonazePAM 0.5 MG TAB PO SCH (09:00)
[2021-02-03] MEDS: PHENYTOIN INJ 250 MG/5 ML VIAL (J1165) IV SCH ×2 (09:05→19:31)
[2021-02-03] MEDS: IPRATROPIUM 0.5MG/ALBUTEROL 2.5MG INH SOL UD 3ML (DUONEB) NEB SCH ×3 (11:13→19:22)
[2021-02-03] MEDS ORDERED: BACLOFEN 10 MG TAB NG ONE (11:15)
--- NOTE | 2021-02-03 11:26 | IPNPDOC ---
Subjective Date Seen The patient was seen on 02/03/21. Subjective Chief Complaint/HPI Patient was seen and examined at bedside this morning. She was transitioned from the ICU to PCU overnight. When she was seen at bedside this morning she was less responsive and holding onto the bed tightly. When her name was called she did not respond and was not following commands. It seemed as if she was belly breathing and respiratory distress. Therefore, she was unable to contribute to review of systems. Objective Physical Examination Other physical findings General: Lying in bed, no acute distress Head/Neck/Throat: Trachea midline, mucous membranes moist Eyes: Sclera anicteric, no erythema or discharge appreciated bilaterally Thorax: Saturating at 96% on room air, using accessory muscles, there is upper respiratory sounds appreciated Cardiovascular: Normal rate, regular rhythm, normal S1, S2; no S3, S4, rubs/gallops/murmurs Abdomen: Bowel sounds present, soft/nontender/nondistended Genitourinary: No CVA tenderness, no Elizondo in place Musculoskeletal: Difficult to assess as she is now following commands Skin: Warm, dry Neurologic: Awake, not alert, she is resisting passive testing of flexion and extension. Assessment /Plan Assessment #Encephalopathy - toxic and metabolic -Her mentation again this morning has deteriorated and she was following minimal commands. Etiology of her change in mental status is unclear. Several attempts to call her brother who reportedly called the ICU but there has been no answer. -This may be due to polypharmacy, she is on several medications that would alter mentation including alprazolam, amitriptyline, carisoprodol, diphenhydramine, methylphenidate, oxycodone, and OxyContin. If she does begin to show signs of withdrawal we will manage symptomatically with Ativan as needed. Spoke with the system support specialist today, who recommended an NG tube to reintroduce her baclofen as this can cause withdrawals. vs -Infectious etiology. She was noted to be febrile, had leukocytosis, and elevated lactic acid. Blood cultures, and urine cultures were obtained. 30 cc/kg fluid resuscitation was given. Her blood pressure remains stable. Continue with broad-spectrum antibiotics and narrow based on cultures. vs -Apparently, she had a seizure yesterday. It is possible postictal encephalopathy may be contributing to her mental status, Keppra level is pending, carbamazepine was within normal limits. Increased her Keppra dose to 1000 twice daily from 750 twice daily, continue with Dilantin as per neurology recommendations since there is no IV form of carbamazepine. vs -CVA has been ruled out by MRI. #Sepsis -She meet SIRS criteria but source is unknown. Her UA and chest x-ray were unremarkable. We will check blood cultures. Continue with broad-spectrum antibiotics until cultures have resulted. Lactic acid has resolved. #COPD/bronchiectasis -She seemed to be in respiratory distress today. She had upper respiratory sounds, and was bronchospastic. A stat ABG, prolonged DuoNeb treatment x1, and Solu-Medrol was given. Chest x-ray showed no acute changes. Her ABG showed no signs of CO2 retention. Beginning to suspect that she may have vocal cord dysfunction contributing to her current respiratory status. Pulmonology was consulted for further recommendations. -Reviewing previous records she was on 3 L home O2; DuoNebs for now. #Common variable immunodeficiency -In 11/2019 she was receiving medical therapy as outpatient every . Unclear whether or not this has been continued. #Chronic pain syndrome -Back pain, neck pain, cervical disectomy, lumbosacral spondylosis, post laminectomy syndrome -We will hold narcotics due to mental status #Hyperlipidemia -Continue statin therapy once mental status improves. #Seizures -Increased IV dose of Keppra and continue with Dilantin as carbamazepine is not offered IV. #Anxiety -alprazolam as needed, to prevent benzo withdrawals. #RLS -Holding ropinirole due to mental status. #DVT ppx -heparin subq. Update 1500 - Able to get a hold of the patient's brother, Lele. He reports prior to coming to the hospital patient had a change in mental status but waited a few hours to see if she would bounce back to her baseline. He believes her change may be related to her hx of seizures. Lele reports she has had episodes of what he thinks are seizures where she becomes unresponsive and at times "rocks back and forth" but come back herself. He does not think she has told anyone about these possible seizures she may be having despite being on antiepileptic medications. There has been no changes in in the dosages of her antiepileptics either. He was unable to state the number of pills in her pill box from the time of admission (to many vs to little), or indicate if she may have missed or taken to many of her medications. Lele is hopeful that she return back to her normal mental status. He was given all updates and discussed in length about the assessment/plan mentioned above. All questions were answered. Plan/VTE VTE Prophylaxis Ordered?: Yes VS, I&O, 24H, Fishbone Vital Signs/I&O Vital Signs Date Time Temp Pulse Resp B/P (MAP) Pulse Ox O2 Delivery O2 Flow Rate FiO2 02/03/21 08:00 97.5 78 41 121/76 (91) 97 Room Air 02/01/21 22:19 3.0 I&O- Last 24 Hours up to 6 AM 02/03/21 06:00 Intake Total 1175 ml Output Total 1890 ml Balance -715 ml Laboratory Data 24H LABS Laboratory Tests 2 02/02/21 12:08: Bedside Glucose (Misc Panel) 115 02/02/21 17:21: Bedside Glucose (Misc Panel) 98 02/02/21 20:52: Vancomycin Level Trough 13.8 02/02/21 23:24: Bedside Glucose (Misc Panel) 95 02/03/21 05:03: Bedside Glucose (Misc Panel) 100 02/03/21 08:05: Blood Gas Bicarbonate Standard 24.9, Arterial Blood pH 7.454H, Arterial Blood Partial Pressure CO2 35.1, Arterial Blood Partial Pressure O2 73.3L, Arterial Blood Total CO2 25.1, Arterial Blood HCO3 24.1, Arterial Blood Base Excess 0.5, Arterial Blood Oxygen Saturation 94.4L 02/03/21 10:33: Bedside Glucose (Misc Panel) 117H Microbiology Microbiology 02/01/21 Blood Culture - Preliminary, Resulted No growth after 24 hours . All specim... 02/01/21 Respiratory Virus Panel (PCR) ([facility]) - Final, Complete 02/01/21 Blood Culture - Preliminary, Resulted No growth after 24 hours . All specim... MILAGRO HOOKER M.D. Feb 03, 2021 11:26
--- NOTE | 2021-02-03 11:59 | REP ---
INDICATION: s/p NG tube placement. COMPARISON: Comparison radiograph February 03, 2021 8:32 a.m.. TECHNIQUE: Portable semi-erect AP radiograph time stamp 11:34 a.m.. FINDINGS: Nasogastric tube has been passed through the mediastinum and is seen terminating in the scratch a nasogastric tube is seen entering left upper quadrant. Cervical spine fusion plate hardware is again noted at the top of the imaging field of view. The lungs are symmetrically aerated and free of focal infiltrate. Pulmonary vasculature is not increased. Heart size is normal. IMPRESSION: NG tube enters the left upper quadrant. Otherwise no active disease. <Electronically signed by Seymour Keita > 02/03/21 0731
--- NOTE | 2021-02-03 12:31 | CR.PDOC ---
General Date of Consultation: Feb 03, 2021 Consultation REASON FOR CONSULTATION/CHIEF COMPLAINT: Altered mental status HISTORY OF PRESENT ILLNESS: History obtained from chart. 65-year-old female with a reported history of COPD, bronchiectasis, seizure disorder, narcolepsy, C VID, chronic pain, diabetes mellitus, TIA, sleep apnea. Patient was brought to the ED by EMS for change in mental status. On arrival to the ED she was hemodynamically stable however she was not able to have a conversation and she was a little bit combative. CT head in the ER was grossly unremarkable. She was admitted to [facility] for possible encephalopathy secondary to polypharmacy. ICU was called today because she was tachypneic, encephalopathic and concern for inability to protect airway. ALLERGIES: Please see below. HOME MEDICATIONS: Please see below. PAST MEDICAL HISTORY: As mentioned above PAST SURGICAL HISTORY: Cholecystectomy, multiple orthopedic surgeries SOCIAL HISTORY: Limited due to the patient's mental status. According to previous records she does not smoke, and denied alcohol and recreational drug use. FAMILY HISTORY: According to previous records it was positive for malignancy. REVIEW OF SYSTEMS: Unable to obtain at this time as patient is not able to answer questions due to confusion PHYSICAL EXAMINATION: VITAL SIGNS: Please see below. GENERAL APPEARANCE: Alert and awake. Arousable and appears to be protecting airway. Does not answer questions does not follow simple commands. HEENT: no thyromegaly, trachea midline, PERRLA. normal mucous membranes . RESPIRATORY: Expiratory wheeze heard bilaterally CARDIOVASCULAR: +s1 s2, no murmurs. ABDOMEN: nontender, not distended, +BS EXTREMITIES: no edema or erythema. palpable distal pulses SKIN: no rash, no purpura NEUROLOGICAL: Upper and lower extremities appear to have some rigidity, reflexes are normal, there is no obvious focal neurologic deficits LABORATORY DATA: Please see below. Labs and Imaging personally reviewed by me. IMPRESSION: The most critical problems requiring my immediate presence at bedside are: 1. Suspect toxic/metabolic encephalopathy secondary to baclofen withdrawal. Head imaging is all unremarkable. Doubt INFORMATION ASSURANCE ANALYST infection. 2. History of polypharmacy 3. Acute COPD exacerbation 4. 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 History of seizure disorder 6. History of anxiety PLAN: INFORMATION ASSURANCE ANALYST: Would start baclofen via NG tube. Continue with antiepileptics and check levels. PULM: HOB 30 degrees. Maintain Sp02 94-98%. Titrate off down as tolerated. Bronchodilators [id number] and as needed, Solu-Medrol 60 mg every 8 hours. She is protecting airway at this time, no need for intubation. CARDIO: Maintain MAPs 60-65. GI: Place NG tube, NPO for now RENAL: Follow-up electrolytes. ID: c/w with abx until cultures return ENDO: Monitor FS per routine. Goal range 140-180. HEME: dvt ppx LINES/CATHETERS: peripherals only DVT/GI PPX CODE STATUS: full code . DISPOSITION: icu monitoring A total of 51 minutes of critical care time was spent at bedside, not including procedures Vital Signs/I&O Vital Signs Date Time Temp Pulse Resp B/P (MAP) Pulse Ox O2 Delivery O2 Flow Rate FiO2 02/03/21 08:00 97.5 78 41 121/76 (91) 97 Room Air 02/01/21 22:19 3.0 I&O- Last 24 Hours up to 6 AM 02/03/21 06:00 Intake Total 1175 ml Output Total 1890 ml Balance -715 ml Laboratory Data Labs 24H Laboratory Tests 2 02/02/21 17:21: Bedside Glucose (Misc Panel) 98 02/02/21 20:52: Vancomycin Level Trough 13.8 02/02/21 23:24: Bedside Glucose (Misc Panel) 95 02/03/21 05:03: Bedside Glucose (Misc Panel) 100 02/03/21 08:05: Blood Gas Bicarbonate Standard 24.9, Arterial Blood pH 7.454H, Arterial Blood Partial Pressure CO2 35.1, Arterial Blood Partial Pressure O2 73.3L, Arterial Blood Total CO2 25.1, Arterial Blood HCO3 24.1, Arterial Blood Base Excess 0.5, Arterial Blood Oxygen Saturation 94.4L 02/03/21 10:33: Bedside Glucose (Misc Panel) 117H Microbiology Microbiology 02/01/21 Blood Culture - Preliminary, Resulted No growth after 24 hours . All specim... 02/01/21 Respiratory Virus Panel (PCR) ([facility]) - Final, Complete 02/01/21 Blood Culture - Preliminary, Resulted No growth after 24 hours . All specim... Allergies Coded Allergies: No Known Allergies (Unverified , 02/01/21) Home Medications Scheduled Alprazolam (Alprazolam) 0.25 Mg Tablet, 0.25 MG PO TID, (Reported) Amitriptyline HCl (Amitriptyline HCl) 50 Mg Tablet, 50 MG PO DAILY, (Reported) Atorvastatin Calcium (Atorvastatin Calcium) 40 Mg Tablet, 40 MG PO DAILY, (Reported) Baclofen (Baclofen) 10 Mg Tablet, 10 MG PO QHS, (Reported) Carbamazepine (Carbamazepine ER) 200 Mg Tab.er.12h, 200 MG PO DAILY, (Reported) Carbamazepine (Carbamazepine ER) 200 Mg Tab.er.12h, 400 MG PO QHS, (Reported) Docusate Sodium (Docusate Sodium) 100 Mg Capsule, 200 MG PO DAILY, (Reported) Ergocalciferol (Vitamin D2) (Vitamin D2) 50,000 Units Cap, 50,000 UNITS PO ASDIRECTED, (Reported) EVERY 10 DAYS Fluticasone Propionate (Fluticasone Propionate) 16 Gm [place].susp, 2 SPRAYS NARES QHS, (Reported) Furosemide (Furosemide) 40 Mg Tablet, 40 MG PO DAILY, (Reported) Levetiracetam (Levetiracetam) 750 Mg Tablet, 750 MG PO BID, (Reported) Methylphenidate HCl (Methylphenidate HCl) 10 Mg Tablet, 10 MG PO QAM, (Reported) Methylphenidate HCl (Methylphenidate HCl) 10 Mg Tablet, 20 MG PO DAILY, (Reported) TAKES AT NOON Nitrofurantoin Macrocrystal (Nitrofurantoin) 50 Mg Capsule, 50 MG PO DAILY, (Reported) Oxycodone HCl (Oxycontin) 20 Mg Tab.er.12h, 20 MG PO Q12H, (Reported) Ropinirole HCl (Ropinirole HCl) 0.5 Mg Tablet, 0.5 MG PO BID, (Reported) Salmeterol/Fluticasone (Advair 500-50 Diskus) 1 Each Blst.w.dev, 1 PUFF INH Q12 H, (Reported) Umeclidinium [place] (Incruse Ellipta) 62.5 Mcg Blst.w.dev, 1 PUFF INH DAILY, (Reported) Scheduled PRN Albuterol Sulfate (Albuterol Sulfate Hfa) 8.5 Gm Hfa.aer.ad, 2 PUFFS INH Q4H PRN for SHORTNESS OF BREATH, (Reported) Carisoprodol (Carisoprodol) 350 Mg Tablet, 350 MG PO TID PRN for PAIN LEVEL 1-4, (Reported) Ibuprofen (Ibuprofen) 800 Mg Tablet, 800 MG PO Q8H PRN for PAIN LEVEL 1-4, (Reported) Nystatin (Nystatin Powder) 15 Gm Powder, 1 APPLIC TOP BID PRN for RASH, (Reported) APPLIES TO GROIN, UNDER BREASTS Oxycodone HCl (Oxycodone HCl) 5 Mg Tablet, 5 MG PO Q8H PRN for PAIN LEVEL 8-10, (Reported) diphenhydrAMINE HCl (diphenhydrAMINE HCl) 25 Mg Tablet, 25 MG PO Q4H PRN for ITCHING, (Reported) Miscellaneous Medications [Med Rec Comment] , (Reported) [facility] REC OBTAINED VIA EXTERNAL CAMI KIRK MD Feb 03, 2021 12:31
[2021-02-03 15:05] LABS: ABG BASE EXCESS -0.4 (-2.0-2.0); ABG HCO3 22.2 MEQ/L (22.0-26.0); ABG O2 SATURATION 97.1 % (95.0-99.0); ABG PARTIAL PRESSURE CO2 30.7 mmHg (35.0-45.0); ABG PARTIAL PRESSURE O2 91.6 mmHg (75.0-100.0); ABG STANDARD HCO3 24.1 MEQ/L (22.0-26.0); ABG TOTAL CO2 23.1 MEQ/L (23.0-31.0); ABG pH (ARTERIAL) 7.477 UNITS (7.350-7.450)
[2021-02-03] MEDS ORDERED: MORPHINE 2 MG/ML 1ML VIAL (J2270) IV ONE (16:20)
[2021-02-03] MEDS ORDERED: oxyCODONE 20 MG CR TAB PO SCH (17:25)
[2021-02-03] MEDS ORDERED: LORazepam 2 MG/ML VIAL IM PRN (17:25)
[2021-02-03] MEDS ORDERED: LORazepam 2 MG/ML VIAL IV PRN (18:00)
[2021-02-03] MEDS ORDERED: levETIRAcetam INJection 1,500 MG in D5W 100 ML IV ONE (18:00)
[2021-02-03] MEDS ORDERED: levETIRAcetam INJection 1,500 MG in D5W 100 ML IV SCH (18:00)
[2021-02-03] MEDS ORDERED: oxyCODONE 5MG TAB NG PRN (18:10)
--- NOTE | 2021-02-03 19:33 | DS.PDOC ---
Discharge Summary General Date of Admission Feb 01, 2021 at 17:43 Date of Discharge 02/03/21 Discharge Summary ADMITTING DIAGNOSES: 1. Encephalopathy DISCHARGE DIAGNOSES: 1. Toxic/metabolic encephalopathy 2. Seizure 3. Sepsis 4. COPD 5. Chronic back pain COMPLICATIONS/CHIEF COMPLAINT: Encephalopathy. HOSPITAL COURSE: Ms. Dior, is a 65-year-old female with a past medical history of COPD, bronchiectasis, seizure disorder, narcolepsy, common variable immunodeficiency, chronic pain syndrome, diabetes mellitus, TIA, sleep apnea, degenerative disc disease, and psoairsis was brought to the emergency room department by EMS for a change in mental status. On the day of admission family was unreachable therefore history was limited. She was admitted for encephalopathy which was thought to be multifactorial including polypharmacy, infectious etiology, and postictal encephalopathy. She was noted to be febrile, have leukocytosis therefore was started on broad- spectrum antibiotics including vancomycin and Zosyn, for sepsis with an unknown source. CT scan of the chest, abdomen pelvis showed no acute pathology. Blood cultures on day 2 were negative thus far. Since she was n.p.o. status, she was started on her home dose of Keppra and IV phenytoin as her ambulatory p.o. carbamazepine would not be possible. At home, she was taking alprazolam, amitriptyline, carisoprodol, diphenhydramine, methylphenidate, oxycodone, and OxyContin. Therefore polypharmacy was also a suspicion She was protecting her airway therefore was not intubated. She was transferred to the ICU for neurological as well as airway monitoring. On the day 2 of admission, there is concerns that patient may have had another seizure that was witnessed by the nursing staff. Therefore her Keppra was titrated to 1000 mg twice daily from 750 mg twice daily. At this point, she was slightly confused but her mental status was still improved from the time of admission. Therefore she was downgraded from ICU to PCU. On day 3 of admission, she was altered again. The nursing staff and concerns that she may have had a seizure. Therefore neurology was contacted again and recommended an NG tube be placed and we reintroduce her carbamazepine, Keppra be increased to 1500 mg twice daily, and to continue with phenytoin. There was also concerns of her respiratory status therefore the ICU team was consulted. Initially was thought that her breathing was due to a COPD exac erbation. However, her ABG did not show any CO2 retention despite her work of breathing. She received 125 mg of Solu-Medrol as well as DuoNeb treatment and was transferred back to the ICU for close respiratory watch. The dental surgeon felt that she may also be withdrawing from baclofen, therefore baclofen was reintroduced. In the ICU she had further seizure-like activity, and now believed to be postictal causing her encephalopathy. There was concerns for continuous seizures. Unfortunately, there was no EEG available on the weekend and neurologist recommended that a continuous EEG would be most beneficial for her care. Therefore she is being transferred. At the time of discharge, patient remains encephalopathic. She was on Zosyn 3.375 gm every 6 hours, vancomycin 1000 mg every 8, Keppra 1000 mg every 12 (last dose received at on 02/03/21 at 1852), carbamazepine 200 mg every 8 (she was still to receive this dose), phenytoin 200 mg every 12 (last dose on 02/03 at 0905). Her alprazolam 0.25 milligrams 3 times daily, baclofen 10 mg was initiated on 02/03. Dr. Delaney of the neuro ICU at [place] accepted the patient. Patient's brother, Lele was notified about transfer and he was in agreement. Progress note from the day of transfer: #Encephalopathy - toxic and metabolic -Her mentation again this morning has deteriorated and she was following minimal commands. Etiology of her change in mental status is unclear. Several attempts to call her brother who reportedly called the ICU but there has been no answer. -This may be due to polypharmacy, she is on several medications that would alter mentation including alprazolam, amitriptyline, carisoprodol, diphenhydramine, methylphenidate, oxycodone, and OxyContin. If she does begin to show signs of withdrawal we will manage symptomatically with Ativan as needed. Spoke with the dental surgeon today, who recommended an NG tube to reintroduce her baclofen as this can cause withdrawals. vs -Infectious etiology. She was noted to be febrile, had leukocytosis, and elev ated lactic acid. Blood cultures, and urine cultures were obtained. 30 cc/kg fluid resuscitation was given. Her blood pressure remains stable. Continue with broad-spectrum antibiotics and narrow based on cultures. vs -Apparently, she had a seizure yesterday. It is possible postictal encephalopathy may be contributing to her mental status, Keppra level is pending, carbamazepine was within normal limits. Increased her Keppra dose to 1000 twice daily from 750 twice daily, continue with Dilantin as per neurology recommendations since there is no IV form of carbamazepine. vs -CVA has been ruled out by MRI. #Sepsis -She meet SIRS criteria but source is unknown. Her UA and chest x-ray were unremarkable. We will check blood cultures. Continue with broad-spectrum antibiotics until cultures have resulted. Lactic acid has resolved. #COPD/bronchiectasis -She seemed to be in respiratory distress today. She had upper respiratory sounds, and was bronchospastic. A stat ABG, prolonged DuoNeb treatment x1, and Solu-Medrol was given. Chest x-ray showed no acute changes. Her ABG showed no signs of CO2 retention. Beginning to suspect that she may have vocal cord dysfunction contributing to her current respiratory status. Pulmonology was consulted for further recommendations. -Reviewing previous records she was on 3 L home O2; DuoNebs for now. #Common variable immunodeficiency -In 11/2019 she was receiving medical therapy as outpatient every . Unclear whether or not this has been continued. #Chronic pain syndrome -Back pain, neck pain, cervical disectomy, lumbosacral spondylosis, post laminectomy syndrome -We will hold narcotics due to mental status #Hyperlipidemia -Continue statin therapy once mental status improves. #Seizures -Increased IV dose of Keppra and continue with Dilantin as carbamazepine is not offered IV. #Anxiety -alprazolam as needed, to prevent benzo withdrawals. #RLS -Holding ropinirole due to mental status. #DVT ppx -heparin subq. Update 1500 - Able to get a hold of the patient's brother, Lele. He reports prior to coming to the hospital patient had a change in mental status but waited a few hours to see if she would bounce back to her baseline. He believes her change may be related to her hx of seizures. Lele reports she has had episodes of what he thinks are seizures where she becomes unresponsive and at times "rocks back and forth" but come back herself. He does not think she has told anyone about these possible seizures she may be having despite being on antiepileptic medications. There has been no changes in in the dosages of her antiepileptics either. He was unable to state the number of pills in her pill box from the time of admission (to many vs to little), or indicate if she may have missed or taken to many of her medications. Lele is hopeful that she return back to her normal mental status. He was given all updates and discussed in length about the assessment/plan mentioned above. All questions were answered. DISCHARGE MEDICATIONS: Please see below. ALLERGIES: Please see below. PHYSICAL EXAMINATION ON DISCHARGE: VITAL SIGNS: Please see below. General: Lying in bed, no acute distress Head/Neck/Throat: Trachea midline, mucous membranes moist Eyes: Sclera anicteric, no erythema or discharge appreciated bilaterally Thorax: Saturating at 96% on room air, using accessory muscles, there is upper respiratory sounds appreciated Cardiovascular: Normal rate, regular rhythm, normal S1, S2; no S3, S4, rubs/gallops/murmurs Abdomen: Bowel sounds present, soft/nontender/nondistended Genitourinary: No CVA tenderness, no Elizondo in place Musculoskeletal: Difficult to assess as she is now following commands Skin: Warm, dry Neurologic: Staring into space, not following commands or answering questions LABORATORY DATA: Please see below. IMAGING: PORTABLE CHEST X-RAY FINDINGS: Nasogastric tube has been passed through the mediastinum and is seen terminating in the scratch a nasogastric tube is seen entering left upper quadrant. Cervical spine fusion plate hardware is again noted at the top of the imaging field of view. The lungs are symmetrically aerated and free of focal infiltrate. Pulmonary vasculature is not increased. Heart size is normal. IMPRESSION: NG tube enters the left upper quadrant. Otherwise no active disease. CT ABD & PELVIS WITH CONTRAST FINDINGS: Lungs: Bibasilar interstitial coarsening with minimal fibro-atelectatic change. Liver: Normal. No mass. Gallbladder and bile ducts: Status post cholecystectomy. Pancreas: Pancreatic atrophy for age. Spleen: Normal. No splenomegaly. Adrenals: Normal. No mass. Kidneys and ureters: Lobular kidneys bilaterally. Stomach and bowel: Visualized stomach and bowel are unremarkable. No obstruction. No mucosal thickening. Intraperitoneal space: Unremarkable. No free air. No significant fluid collection. Lymph nodes: Unremarkable. No enlarged lymph nodes. Vasculature: Mild atherosclerotic calcification of the aorta. Bones/joints: Anterior wedge configuration of T8-T9 and T11 with decreased height of T10 which appear to be chronic Soft tissues: Unremarkable. IMPRESSION: 1. Status post cholecystectomy. 2. Pancreatic atrophy for age. 3. Otherwise negative CT abdomen. CT CHEST W/O FOLL BY WITH CONT FINDINGS: Lungs: Slight interstitial coarsening with minimal scattered fibro-atelectatic change. Pleural spaces: Unremarkable. No pneumothorax. No pleural effusion. Heart: Unremarkable. No cardiomegaly. No pericardial effusion. Pulmonary arteries: The main pulmonary artery measures 23 mm. Aorta: The ascending thoracic aorta measures 30 mm. Lymph nodes: Unremarkable. No enlarged lymph nodes. Gallbladder and bile ducts: Status post cholecystectomy. Bones/joints: Degenerative changes of the shoulders with question of loose bodies or calcific densities along the biceps tendon on the right. Soft tissues: Unremarkable. Other findings: Motion artifact with image degradation. IMPRESSION: 1. Motion artifact with image degradation. 2. Slight interstitial coarsening with minimal scattered fibro-atelectatic change. 3. Degenerative changes of the shoulders with loose bodies along the biceps tendon sheath. 4. Otherwise negative CT chest. No focal infiltrates. MRA BRAIN W/O CONTRAST FINDINGS: ANTERIOR CIRCULATION: Right internal carotid artery: Intracranial segment is patent with no significant stenosis. No aneurysm. Right middle cerebral artery: No occlusion or significant stenosis. No aneurysm. Right anterior cerebral artery: No occlusion or significant stenosis. No aneurysm. Left internal carotid artery: Intracranial segment is patent with no significant stenosis. No aneurysm. Left middle cerebral artery: No occlusion or significant stenosis. No aneurysm. Left anterior cerebral artery: No occlusion or significant stenosis. No aneurysm. POSTERIOR CIRCULATION: Right vertebral artery: No occlusion or significant stenosis. No aneurysm. Left vertebral artery: No occlusion or significant stenosis. No aneurysm. Basilar artery: No occlusion or significant stenosis. No aneurysm. Right posterior cerebral artery: No occlusion or significant stenosis. No aneurysm. Left posterior cerebral artery: No occlusion or significant stenosis. No aneurysm. IMPRESSION: No stenosis.No occlusion. No aneurysm. MRI-Brain without Contrast FINDINGS: Limitations: The study is limited due to motion artifact. Brain: There is mild patchy increased T2 signal intensity within the bilateral cerebral periventricular white matter, consistent with chronic microvascular ischemic changes. There are multiple small focal areas of chronic ischemia in bilateral frontal, parietal and periatrial white matter. There is no abnormal diffusion weighted signal intensity to suggest an acute ischemic event. There is mild diffuse cerebral atrophy present, consistent with this patient's age. Cerebral ventricles: The ventricular system demonstrates mild diffuse compensatory enlargement. Bones/joints: Unremarkable. Paranasal sinuses: Normal as visualized. No acute sinusitis. Mastoid air cells: Normal as visualized. No mastoid effusion. Orbital cavity: Unremarkable. Soft tissues: Unremarkable. IMPRESSION: 1. No acute infarction, masses or hemorrhage is seen. No acute intracranial abnormality is identified. 2. Diffuse age-related cerebral atrophy and mild chronic microvascular white matter ischemic changes, without evidence of an acute intracranial abnormality. 3. There has been no adverse interval change since the previous study. PROGNOSIS: Guarded ACTIVITY: Bedrest for now DIET: N.p.o. DISCHARGE PLAN: Transfer to tertiary care center that has capabilities of continuous EEG. TIME SPENT ON DISCHARGE: 75 minutes. Vital Signs/I&Os Vital Signs Date Time Temp Pulse Resp B/P (MAP) Pulse Ox O2 Delivery O2 Flow Rate FiO2 02/03/21 16:41 38 02/03/21 16:31 96 168/76 96 Nasal Cannula 2.0 02/03/21 16:00 97.8 I&O- Last 24 Hours up to 6 AM 02/03/21 06:00 Intake Total 1175 ml Output Total 1890 ml Balance -715 ml Laboratory Data Labs 24H Laboratory Tests 2 02/02/21 20:52: Vancomycin Level Trough 13.8 02/02/21 23:24: Bedside Glucose (Misc Panel) 95 02/03/21 05:03: Bedside Glucose (Misc Panel) 100 02/03/21 08:05: Blood Gas Bicarbonate Standard 24.9, Arterial Blood pH 7.454H, Arterial Blood Partial Pressure CO2 35.1, Arterial Blood Partial Pressure O2 73.3L, Arterial Blood Total CO2 25.1, Arterial Blood HCO3 24.1, Arterial Blood Base Excess 0.5, Arterial Blood Oxygen Saturation 94.4L 02/03/21 10:33: Bedside Glucose (Misc Panel) 117H 02/03/21 14:54: Blood Gas Bicarbonate Standard 24.1, Arterial Blood pH 7.477H, Arterial Blood Partial Pressure CO2 30.7L, Arterial Blood Partial Pressure O2 91.6, Arterial Blood Total CO2 23.1, Arterial Blood HCO3 22.2, Arterial Blood Base Excess -0.4, Arterial Blood Oxygen Saturation 97.1 02/03/21 17:19: Bedside Glucose (Misc Panel) 138H FSBS Laboratory Tests Test 02/02/21 23:24 02/03/21 05:03 02/03/21 10:33 02/03/21 17:19 Range/Units Bedside Glucose (Misc Panel) 95 100 117 138 80-115 MG/DL Microbiology Microbiology 02/01/21 Blood Culture - Preliminary, Resulted No Growth after 48 hours. All Specime... 02/01/21 Respiratory Virus Panel (PCR) ([facility]) - Final, Complete 02/01/21 Blood Culture - Preliminary, Resulted No Growth after 48 hours. All Specime... Discharge Medications Scheduled Alprazolam (Alprazolam) 0.25 Mg Tablet, 0.25 MG PO TID, (Reported) Amitriptyline HCl (Amitriptyline HCl) 50 Mg Tablet, 50 MG PO DAILY, (Reported) Atorvastatin Calcium (Atorvastatin Calcium) 40 Mg Tablet, 40 MG PO DAILY, (Reported) Baclofen (Baclofen) 10 Mg Tablet, 10 MG PO QHS, (Reported) Carbamazepine (Carbamazepine ER) 200 Mg Tab.er.12h, 200 MG PO DAILY, (Reported) Carbamazepine (Carbamazepine ER) 200 Mg Tab.er.12h, 400 MG PO QHS, (Reported) Docusate Sodium (Docusate Sodium) 100 Mg Capsule, 200 MG PO DAILY, (Reported) Ergocalciferol (Vitamin D2) (Vitamin D2) 50,000 Units Cap, 50,000 UNITS PO ASDIRECTED, (Reported) EVERY 10 DAYS Fluticasone Propionate (Fluticasone Propionate) 16 Gm [place].susp, 2 SPRAYS NARES QHS, (Reported) Furosemide (Furosemide) 40 Mg Tablet, 40 MG PO DAILY, (Reported) Oxycodone HCl (Oxycontin) 20 Mg Tab.er.12h, 20 MG PO Q12H, (Reported) Phenytoin (Phenytoin Sodium INJ) 50 Mg/1 Ml Vial, 200 MG IV Q12H Ropinirole HCl (Ropinirole HCl) 0.5 Mg Tablet, 0.5 MG PO BID, (Reported) Salmeterol/Fluticasone (Advair 500-50 Diskus) 1 Each Blst.w.dev, 1 PUFF INH Q12H, (Reported) Umeclidinium [place] (Incruse Ellipta) 62.5 Mcg Blst.w.dev, 1 PUFF INH DAILY, (Reported) levETIRAcetam (levETIRAcetam) 500 Mg Tablet, 1,500 MG PO BID Scheduled PRN Albuterol Sulfate (Albuterol Sulfate Hfa) 8.5 Gm Hfa.aer.ad, 2 PUFFS INH Q4H PRN for SHORTNESS OF BREATH, (Reported) Ibuprofen (Ibuprofen) 800 Mg Tablet, 800 MG PO Q8H PRN for PAIN LEVEL 1-4, (Reported) Nystatin (Nystatin Powder) 15 Gm Powder, 1 APPLIC TOP BID PRN for RASH, (Reported) APPLIES TO GROIN, UNDER BREASTS Oxycodone HCl (Oxycodone HCl) 5 Mg Tablet, 5 MG PO Q8H PRN for PAIN LEVEL 8-10, (Reported) Allergies Coded Allergies: No Known Allergies (Unverified , 02/01/21) MILAGRO HOOKER M.D. Feb 03, 2021 19:27
[2021-02-03] MEDS ORDERED: LEVE500T5 PO (19:36)
[2021-02-03] MEDS ORDERED: [UNRECOGNIZED DRUG - CODE] IV (19:36)
[2021-02-03] MEDS: ALPRAZolam 0.25 MG TAB PO SCH ×2 (20:38→20:48)
[2021-02-03] MEDS: LIDOCAINE 5% (LIDODERM) PATCH TD SCH (20:38)
[2021-02-03] MEDS ORDERED: LORazepam 2 MG/ML VIAL IV STA (20:42)
[2021-02-03] MEDS ORDERED: diazePAM 10MG/2ML SYRINGE (J3360 PER 5MG) As Ordered ONE (21:09)
[2021-02-03] MEDS ORDERED: MIDAZOLAM INJ 2MG/2ML VIAL (J2250 PER 1MG) IV STA (21:12)
[2021-02-03] MEDS ORDERED: carBAMazepine 100MG 5ML SUSP ORAL SYRINGE *DRAW UP EXACT DOSE NG SCH (22:00)
--- NOTE | 2021-02-04 06:03 | CR ---
CONSULTATION DATE: 02/02/2021 REFERRING PHYSICIAN: Kirill Neil M.D., REASON FOR CONSULTATION: Altered mental status. HISTORY OF PRESENT ILLNESS: Karissa Dior is a 65-year-old woman with a history of chronic obstructive pulmonary disease (COPD), seizures, narcolepsy, common variable immune deficiency, chronic pain syndrome, diabetes, transient ischemic attack (TIA), sleep apnea, who was brought to [facility] by emergency medical service (EMS). The patient was noted to have altered mental status and was unable to provide any history. The patient was dropped off without much information given. She was noted to be swinging in bed and later her mental status changed to staring into space when her name was called and she would track and respond with one word. She would not engage in any conversation in the emergency department. In the emergency department, she was noted to be staring into space and her extremities were rolling. When her name was called, these movements would stop and she would track provider in the room, but would not engage in any conversation. She did not follow any commands. She was unable to provide any history. Her temperature in the emergency department was 100.5 with lactic acid 2.24. CT scan of head did not show any abnormality. She received 0.5 mg of Ativan due to initial agitation. I was consulted and recommended MRI scan of brain, which was not completed by the time I saw her, as no contacts were available to provide clearance for MRI scan of brain. I recommended starting her on vancomycin and Zosyn, check chest x-ray, urinalysis, MRI of brain and levels of her antiepileptic medications. Her Tegretol level was 7.6. Keppra level was pending. When I saw the patient in the ICU, she was awake and would answer most of the questions with yes and okay. She was able to follow only one step commands with physical cues, such as squeezing my fingers. She was moving her extremities volitionally without any focal deficits. PAST MEDICAL HISTORY: As described in history of present illness in addition to cholecystectomy, multiple orthopedic surgeries. SOCIAL HISTORY: Could not be obtained. FAMILY HISTORY: Could not be obtained. HOME MEDICATIONS: Based on her outpatient records, Xanax 0.25 mg by mouth three times a day, amitriptyline 50 mg by mouth every night at bedtime, atorvastatin 50 mg by mouth daily, carbamazepine 200 plus 400 mg a day, levetiracetam 750 mg by mouth twice a day, methylphenidate 10 mg in the morning and 20 mg in the evening, oxycodone 20 mg by mouth twice a day extended release and oxycodone 5 mg by mouth daily as needed, Incruse inhaler one puff daily, ropinirole 0.5 mg by mouth twice a day, Advair Diskus 50/500 mcg inhalation twice a day, Flonase nasal spray twice a day, Lasix 40 mg by mouth daily, vitamin D2 14270 units daily, Soma 350 mg by mouth daily as needed, ibuprofen 800 mg by mouth daily as needed, albuterol inhaler as needed, Benadryl 25 mg by mouth q 4 hours as needed. ALLERGIES: None. REVIEW OF SYSTEMS: Could not be obtained. PHYSICAL EXAMINATION: Temperature is 99.1, pulse 91, respiratory rate 24, blood pressure 148/90, 99% saturation on 2 liters nasal canula oxygen. Heart: Regular rate and rhythm. Lungs: Clear to auscultation. Abdomen: Soft, nontender, non-distended. No pedal edema. No musculoskeletal abnormalities. No rash. No signs of meningeal irritation. The patient is awake, alert, oriented to self only. She is able to barely follow one step commands. She answers most of the questions through yes and okay, but does not follow through with answer or command. She was able to squeeze my fingers with physical cues. She moves her extremities voluntarily without any focal deficits. Strength, sensory, cerebellar and gait tested could not be performed. She appears to have periodic limb movements of wakefulness and occasional myoclonus. DIAGNOSTIC STUDIES: CT of head did not show any acute disease. Sodium was 133, potassium 4.9, creatinine 0.6, hematocrit 44 with white count 16.9, platelet count 464. Urine toxicology screen was positive for cocaine metabolite. ASSESSMENT: 1. Altered mental status. 2. Concern for postictal state and infectious etiology. PLAN: 1. MRI and MRA brain pending clearance for MRI scan. 2. Electroencephalogram (EEG). 3. Until she is cleared to swallow, we can start phenytoin 200 mg IV twice a day. Replace carbamazepine and increase Keppra to 1000 mg IV twice a day. 4. Continue ropinirole 0.5 mg by mouth or NG tube twice a day. 5. If she has any witnessed seizure activity, restarting carbamazepine, increasing dose of Keppra and transferring to [facility] for video electroencephalogram (EEG) monitoring to rule out nonconvulsive status will be another option. Use 1 2 mg Ativan IV twice a day as needed for any witnessed seizures. 6. Follow with our office in 1 2 weeks after hospital discharge.
[2021-02-04] MEDS ORDERED: BACLOFEN 10 MG TAB PO SCH (21:00)
[2021-02-06 23:09] LABS: AMITRIPTYLINE 51 ng/mL (Not Estab.); AMITRIPTYLINE AND NORTRIPTYLI 97 ng/mL (80-200); NORTRIPTYLINE 46 ng/mL (Not Estab.)
== END 2021-02-03 21:41 | disposition short-term general hospital (02) | DRG 872 ==
LOC: EDBD 14:00 → M ED 14:00 → M ED INP 17:43 → M ICU 22:05 → M PCU 02-03 03:33 → M ICU 02-03 10:33
PROVIDERS: ADMIT Internal Medicine; ATTEND Internal Medicine
DX: A41.9 Sepsis, unspecified organism (principal); E87.2 Acidosis; G93.49 Other encephalopathy; D83.9 Common variable immunodeficiency, unspecified; J44.9 Chronic obstructive pulmonary disease, unspecified; G89.4 Chronic pain syndrome; E78.5 Hyperlipidemia, unspecified; G40.909 Epilepsy, unspecified, not intractable, without status epilepticus; F41.9 Anxiety disorder, unspecified; G25.81 Restless legs syndrome; Z90.49 Acquired absence of other specified parts of digestive tract; Z79.899 Other long term (current) drug therapy; Z86.73 Personal history of transient ischemic attack (TIA), and cerebral infarction without residual deficits